=== PATIENT | female | born 1955 | race African-American/Black ===

== ENCOUNTER 2023-11-05 11:50 | Emergency (ER) | payer MEDICARE ==
[~2023-11-05] VITALS: Ht 160 cm; Wt 59.0 kg
[2023-11-05 11:53] VITALS: O2SAT 95
[2023-11-05 12:21] LABS: HEMATOCRIT. 25.3 % (36.0-48.0); HEMOGLOBIN. 8.3 g/dL (12.0-16.0); MEAN CORPUSCULAR HEMOGLOBIN 31.9 pg (28.0-32.0); MEAN CORPUSCULAR HGB CONC 32.8 g/dL (31.0-37.0); MEAN CORPUSCULAR VOLUME 97.3 fL (81.0-99.0); MEAN PLATELET VOLUME 10.2 fl (7.4-10.4); PLATELET 157 x1000/uL (130-400); RED CELL DISTRIBUTION WIDTH 15.7 % (11.6-14.6); WHITE BLOOD COUNT 6.1 x1000/uL (4.5-11.0)
[2023-11-05 12:22] LABS: DIFFERENTIAL COMMENT 1
[2023-11-05 12:26] LABS: INR 0.9; PROTHROMBIN TIME 10.4 sec (9.6-11.0)
[2023-11-05 12:57] LABS: ALANINE AMINOTRANSFERASE < 7 IU/L (10-49); ALBUMIN 3.5 g/dL (3.2-4.8); ASPARTATE AMINOTRANSFERASE 13 IU/L (<34); BILIRUBIN TOTAL 0.3 mg/dL (0.1-1.0); CALCIUM 8.1 mg/dL (8.7-10.4); CARBON DIOXIDE 24 mEq/L (21-32); CHLORIDE 98 mEq/L (98-107); GLUCOSE 282 mg/dL (70-105); POTASSIUM 3.6 mEq/L (3.5-5.1); PROTEIN TOTAL 6.3 g/dL (6.0-8.3); SODIUM 139 mEq/L (136-145); UREA NITROGEN BLOOD 55 mg/dL (9-23)
[2023-11-05 14:40] VITALS: BP 103/67; PULSE 76; RESP 18; TEMP 97.8
[2023-11-05 15:26] LABS: ANISOCYTOSIS 1+; PLATELET ESTIMATE NORMAL
== END 2023-11-05 15:21 | disposition short-term general hospital (02) ==
LOC: ER 12:42 → EDBD 12:42 → CMPBEDREQ 14:29 → ER 15:21
DX: T82.838A Hemorrhage due to vascular prosthetic devices, implants and grafts, initial encounter (principal); I10 Essential (primary) hypertension
CPT/HCPCS: 36415; 71045; 80053; 85025; 86850; 86900; 99284; 99285